=== PATIENT | female | born 1950 | race African-American/Black ===

== ENCOUNTER 2017-05-02 06:25 | Observation (INO) | payer MEDICARE, OTHER ==
--- NOTE | ~2017-05-02 | CO ---
Unit #: [id number] #: [id number] Patient: TANJA ISBELL [id number] [address] [place], [place] [address] [id number] I MR#: [id number] NAME: TANJA ISBELL. ROOM: [facility] Age: 67 Sex: F Admission Date: 05/02/2017 : 1950 Attending Physician: Eloisa Anguiano M.D. Primary Care Physician: Héctor Sheikh M.D. Consultation Date: 05/02/2017 CONSULTATION REPORT ADDENDUM PRIMARY CARE PHYSICIAN Héctor Sheikh M.D. REASON FOR CONSULTATION Upper GI bleed. HISTORY OF PRESENT ILLNESS The patient is a 67-year-old female from [facility]. She has a history of previous stroke and dementia and is able to volunteer any history. Apparently, she has some nausea and vomiting and found to have coffee-grounds emesis. She however had a normal hemoglobin on presentation of 14.3 and her BUN and creatinine ratio is mildly elevated at 29 and 1.5. A substantial upper GI bleed is unlikely. Suggest consider an upper endoscopy if the patient has had a drop in hemoglobin. Also suggest doing a modified swallow evaluation to assess the integrity of oropharyngeal function. We will also monitor hemoglobin and hematocrit. Dictated by... Gt Burrows/kori TD: 05/04/2017 01:18 JOB #: [id number] CONSULTATION REPORT Page 1 of 1 X Emery Booker MD X CONSULTATION REPORT
--- NOTE | ~2017-05-02 | EKG ---
PATIENT: TANJA ISBELL UNIT #: [id number] Ventricular Rate: 132 BPM Atrial Rate: 132 BPM P-R Interval: 132 ms QRS Duration: 84 ms Q-T Interval: 284 ms QTC Calculation(Bezet): 420 ms P [place]: 61 degrees Calculated R [place]: 49 degrees Calculated T [place]: -156 degrees Diagnosis Line: Sinus tachycardia with Premature atrial complexes Diagnosis Line: ST and T wave abnormality, consider inferior Diagnosis Line: ischemia Diagnosis Line: ST and T wave abnormality, consider anterolateral Diagnosis Line: ischemia Diagnosis Line: Abnormal ECG Diagnosis Line: No previous ECGs available Diagnosis Line: Confirmed by BROOK NORRIS MD ([id number]) on Diagnosis Line: 05/02/2017 11:15:50 AM INTERPRETING MD: ALLAN
--- NOTE | ~2017-05-02 | CO ---
Unit #: [id number] #: [id number] Patient: TANJA ISBELL [id number] [address] [address] [id number] I MR#: [id number] NAME: TANJA ISBELL. ROOM: 341 Age: 67 Sex: F Admission Date: 05/02/2017 : 1950 Attending Physician: Sonia Bergman M.D. Primary Care Physician: Héctor Sheikh M.D. Consultation Date: 05/02/2017 CONSULTATION REPORT DICTATED FOR Dr. Emery Booker. PRIMARY CARE PHYSICIAN . REASON FOR CONSULT Nausea, vomiting, and coffee-ground emesis. HISTORY OF PRESENT ILLNESS The patient is a 67-year-old female from [facility]. History is unobtainable from the patient secondary to history of CVA and questionable dementia. History is obtained from the chart and previous records. The patient was apparently brought in to the emergency room with acute onset of nausea, vomiting, and having coffee-grounds emesis. The patient has been asymptomatic since admission. Her hemoglobin is 14.3 on admission. PAST MEDICAL HISTORY Chronic kidney disease, toxic metabolic encephalopathy, GERD, hypertension, diabetes, congestive heart failure, CVA, and neurogenic bladder. ALLERGIES No known drug allergies. HOME MEDICATIONS Metoclopramide, pantoprazole, metoprolol, vitamin D, multivitamin, Plavix, isosorbide, citalopram, sodium bicarbonate, hydralazine, Depakote, simvastatin, Tylenol, Zofran, senna-S, and milk of magnesia. SOCIAL HISTORY The patient resides at [facility]. No history of alcohol or tobacco use. FAMILY HISTORY Unobtainable. REVIEW OF SYSTEMS Unobtainable secondary to the patient's cognitive impairment. PHYSICAL EXAMINATION GENERAL: The patient is awake, alert, oriented to self only, in no acute distress. Unit #: [id number] #: [id number] Patient: TANJA ISBELL VITAL SIGNS: Stable with temperature 99.7, blood pressure 170/92, heart rate 108, and respirations 15. HEENT: There is no pallor. No scleral icterus. NECK: No lymphadenopathy. The patient does have trace pedal edema. CARDIOVASCULAR: Regular rate and rhythm. LUNGS: Clear to auscultation bilaterally. ABDOMEN: Soft and nontender. Liver and spleen are not palpable. Bowel sounds are normal. DIAGNOSTIC STUDIES LABORATORY RESULTS: Complete metabolic panel notable for glucose 352, BUN 29, and creatinine 1.5. CBC notable for WBC 10.9, hemoglobin 14.3, and platelets 213. CLINICAL IMPRESSION AND PLAN The patient with nausea and vomiting with coffee-grounds emesis upper gastrointestinal bleed is unlikely. However, an upper GI endoscopy is indicated for definite diagnosis. Attempted to contact the patient's daughter, who is also her POA, is unsuccessful. The patient's sister was notified. We will plan for upper GI endoscopy tomorrow morning. The patient and plan of care discussed in detail with Dr. Booker. Further recommendations to follow. Thank you very much for asking us to see this patient. We appreciate the consult. Dictated by... JOSHUA Lopez/kori TD: 05/02/2017 15:57 JOB #: [id number] CONSULTATION REPORT Page 1 of 1 X X CONSULTATION REPORT
--- NOTE | ~2017-05-02 | DS ---
Unit #: [id number] #: [id number] Patient: TANJA ISBELL [id number] [address] [place], [place] [address] [id number] I MR#: [id number] NAME: TANJA ISBELL. ROOM: 341 Age: 67 Sex: F Admission Date: 05/02/2017 : 1950 Discharge Date: Attending Physician: Eloisa Anguiano M.D. Primary Care Physician: Héctor Sheikh M.D. DISCHARGE SUMMARY ADDENDUM ADDITIONAL PRINCIPAL DIAGNOSES 1. Severe oropharyngeal dysphagia. 2. Severe confluent ulcerative esophagitis. ADDITIONAL PROCEDURES EGD and PEG tube placement May 03, 2017, with findings of severe confluent ulcerative esophagitis. HOSPITAL COURSE Following dictation yesterday, patient was re-evaluated by speech therapy due to some reports of dysphagia. The patient was found to have significant oropharyngeal dysphagia and strict NPO was suggestive. After discussion with Dr. Booker regarding these findings, he discussed PEG tube placement with the patient and his daughter. The patient underwent PEG tube placement yesterday and today isn't complaining of any pain. She has been started on Glucerna 1.5 with a goal rate of 55 mL/hour. She is currently on 20 mL/hour and tolerating it without complication. We will change all of her medications to PEG tube and she can be discharged back to the nursing facility with monitoring of toleration of tube feeds. DISCHARGE CONDITION Stable. DISCHARGE STATUS Discharge to nursing facility. DISCHARGE MEDICATIONS 1. Sodium bicarbonate 650 mg per PEG t.i.d. 2. Tylenol 650 mg per PEG every four hours p.r.n. for pain or fever. 3. Depakote sprinkle, 125 mg per PEG daily. 4. Celexa 20 mg per PEG daily. 5. Zofran 4 mg per PEG every six hours p.r.n. for nausea and vomiting. 6. Metoprolol tartrate 25 mg per PEG b.i.d. 7. Milk of mag 30 mL per PEG daily p.r.n. for constipation. 8. Senokot 8.6 mg per PEG daily p.r.n. for constipation. 9. Refresh eyedrops, one drop to both eyes twice daily. 10. Zocor 5 mg per PEG at bedtime. 11. Hydralazine 25 mg per PEG t.i.d. 12. Humalog KwikPen U-100 14 units subcutaneously t.i.d. 13. Toujeo SoloStar 20 units subcutaneously at bedtime. 14. Reglan 5 mg per PEG four times daily. 15. Daily multivitamin per PEG. Unit #: [id number] #: [id number] Patient: TANJA ISBELL 16. Plavix 75 mg per PEG daily. 17. Pantoprazole 40 mg per PEG twice daily. 18. Imdur ER 60 mg per PEG daily. 19. Vitamin D3 2000 units per PEG daily. DISCHARGE INSTRUCTIONS The patient was instructed to remain NPO. However, she should be followed up by speech therapy at the rehab facility to further improve swallowing if possible. She should be maintained on Glucerna 1.5 with a goal rate of 55 mL/hour. PEG site should be cleaned and dressed with normal saline once daily. Patient should have abdominal binder to avoid pulling of tube. FOLLOWUP The patient will follow up with facility director upon return to the nursing facility. Dictated by... Eloisa Anguiano M.D. JERRELL/bailey TD: 05/04/2017 12:04 JOB #: [id number] DISCHARGE SUMMARY Page 1 of 1 X Eloisa Anguiano MD DISCHARGE SUMMARY
--- NOTE | ~2017-05-02 | A ---
[facility] Nutrition Therapy DATE: 05/04/17 Patient: TANJA ESPOSITO Physician: RACHEL Address: [facility] Room/Bed: [address] [place] [address], Zip: [place] [address] Admit Date: 05/02/17 Date of : [birth year] Height: Weight: 169 77 NUTRITIONAL ASSESSMENT: REASON: Consult re: tubefeed recommendations Dx: 67 y/o female admitted for GI bleed and n/v PMH: CKD, CVA, HTN, toxic metabolic encephalopathy, type 2 DM, CHF, CVA, neurogenic bladder Anthropometrics: ht: 5'2" (per family) wt: 169# (76.8 kg) BMI 30 Labs: Glu 280, BUN 30, Ca++ 10.4, GFR 54.5 Accuchecks 263 Meds: protonix, lopressor, novolog, zocor, levemir, reglan, zofran, milk of magnesia I/O & Bowel function: 160/502. Last BM 05/03 Skin Integrity: WNL Diet: NPO Estimated Nutrition Needs: 0790-7906 kcals (22-24 kcal/kg) 76.8-99 (1.0-1.3 g/kg) Fluids consistent with kcal needs or per MD Assessment: Chart reviewed, events noted. Ms. Esposito is a 67 y/o female admitted for a GI bleed. She is a resident of [facility]. Since admit, she has had a PEG tube placed d/t failed CURATOR OF PHOTOGRAPHY AND PRINTS evaluation and dysphagia. CURATOR OF PHOTOGRAPHY AND PRINTS recommended that the pt remain NPO and consider alternate nutrition. RD consulted to provide enteral nutrition recommendations. RD international controller visited pt at bedside, however, the pt was unable to provide nutritional history due to dementia. No family present to provide weight loss information. Please see recommendations. RD will continue to follow. Dx: Inadequate protein-energy intake r/t current clinical condition AEB NPO status, PEG tube placement, CURATOR OF PHOTOGRAPHY [employer]IN[employer] evaluation. Intervention: 1. Enteral nutrition Monitoring, Evaluation and Goals: 1. Enteral nutrition; once initiated, provide >80% estimated needs at goal volume x 24 hours [facility] Nutrition Therapy DATE: 05/04/17 Patient: TANJA ESPOSITO Physician: RACHEL Address: [facility] Room/Bed: [address] [place] [address], Zip: [place] [address] Admit Date: 05/02/17 Date of : [birth year] Height: Weight: 169 77 2. GI; promote regular GI function 3. Improve labs; glucose, BUN, GFR Recommendations: 1. Once mediclaly feasible, initiate enteral nutrition support with Glucerna 1.5 @ 20 mL/hr and advance 10 mL q 6 hours to goal rate of 50 mL/hr x 24 hours. This will provide 1800 kcal / 99 g protein / 912 mL free H20. -Add 200 mL Free water flushes q 6 hrs or per MD orders. 2. Monitor for signs of enteral nutrition intolerance. 3. Continue CURATOR OF PHOTOGRAPHY [employer]IN[employer] evaluation as appropriate. 4. Continue to monitor glucose and please obtain HgbA1C. RD will f/u per protocol as pt is at mild/moderate nutritional risk. Respectfully, OSORIO TATE, inclusion internship [employer] and [employer] [facility] cc: client file
--- NOTE | ~2017-05-02 | OR ---
Unit #: [id number] #: [id number] Patient: TANJA ISBELL [id number] [address] [address] [id number] I MR#: [id number] NAME: TANJA ISBELL. ROOM: [facility] Date of Procedure: 05/03/2017 Admission Date: 05/02/2017 Surgeon: Emery Booker M.D. : 1950 Attending Physician: Eloisa Anguiano M.D. Primary Care Physician: Héctor Sheikh M.D. OPERATIVE REPORT PRIMARY CARE PHYSICIAN Héctor Sheikh M.D. PREOPERATIVE DIAGNOSES High-grade oropharyngeal dysphagia with high risk for aspiration on a swallow evaluation. The patient has come for elective placement of a PEG tube for enteral feeding. PROCEDURES PERFORMED Upper gastrointestinal endoscopy and uncomplicated percutaneous endoscopic gastrostomy tube placement. POSTOPERATIVE DIAGNOSES 1. The patient has severe confluent ulcerative esophagitis involving the mid and distal esophagus. 2. Early stricture in distal esophagus, which was felt to be nonobstructing. 3. Rest of examination up to third part of duodenum was normal. A 20-Portuguese percutaneous endoscopic gastrostomy tube was placed without any problem. RECOMMENDATIONS 1. Please see the postoperative care of the patient in the chart regarding care of the PEG tube, feeding instructions, and discharge instructions. 2. The patient must stay on b.i.d. pantoprazole 40 mg via PEG tube b.i.d. on a long-term basis. She should have a repeat swallow evaluation in 8 to 10 weeks and if she passes that, then the PEG tube can be discontinued. The patient can be started on p.o. diet. SEDATION USED MAC. DESCRIPTION OF PROCEDURE Following detailed explanation of potential risks and complications of an upper endoscopy and a PEG placement namely perforation, bleeding, and complications related to sedation, the patient was brought to GI lab and laid in the supine position with the head of the bed elevated. Lubricated tip of the Olympus video upper endoscope was passed through the bite block into the proximal esophagus under direct vision. The entire esophageal mucosa was examined. The patient was noted to have severe confluent Unit #: [id number] #: [id number] Patient: TANJA ISBELL ulcerative esophagitis involving the mid and distal esophagus. In addition, there was early esophageal stricture in distal esophagus, which was felt to be nonobstructing. The scope was then advanced into the gastric cavity and the latter was insufflated. Mucosa of the fundus, body, and antrum examined and appeared unremarkable. Pylorus was intubated with visualization of the normal duodenal bulb and second and third part of the duodenum. Upon withdrawal and retroflexion, incisura, cardia, and greater curve examined and no additional findings noted. Using transillumination and finger indentation, a prospective PEG site was identified. The area was cleaned and draped with Betadine and 1% lidocaine infiltrative anesthesia was given. A small stab incision was made. Using Seldinger technique, guidewire was placed in the gastric cavity and the latter was grasped using a polypectomy snare and brought out through the oral cavity. A 20-Portuguese PEG tube was reloaded over the guidewire and brought out through the stab incision. Appropriate feeding attachments and securing device were applied. Relook endoscopy showed excellent position in the mushroom of the PEG tube. The scope was then withdrawn. The patient returned to the recovery area. She tolerated the procedure without any postprocedure complications. Dictated by... Gt Burrows/kori TD: 05/04/2017 23:18 JOB #: [id number] CC: Héctor Sheikh M.D. OPERATIVE REPORT Page 1 of 1 X Emery Booker MD PROCEDURE OPERATIVE NOTE
--- NOTE | ~2017-05-02 | DS ---
Unit #: [id number] #: [id number] Patient: TANJA ESPOSITO [id number] [address] [place], [place] [address] [id number] I MR#: [id number] NAME: TANJA ESPOSITO. ROOM: 341 Age: 67 Sex: F Admission Date: 05/02/2017 : 1950 Discharge Date: 05/03/2017 Attending Physician: Eloisa Anguiano M.D. Primary Care Physician: Héctor Sheikh M.D. DISCHARGE SUMMARY PRINCIPAL DIAGNOSES 1. Hematemesis x1 with stable hemoglobin of 14.3 upon discharge. 2. Hypertension, uncontrolled. 3. Dysphagia with pending swallow evaluation. 4. Questionable urinary tract infection, status post Rocephin x1. 5. Tachycardia. 6. Depression. 7. Chronic kidney disease. 8. Gastroesophageal reflux disease. 9. Diabetes mellitus type 2, insulin requiring. 10. Congestive heart failure, unknown type. 11. Prior history of stroke. 12. Neurogenic bladder. 13. Diabetic gastroparesis. 14. Hyperlipidemia. 15. Probable coronary artery disease. PROVIDER CONTRACTING CONSULTANT Dr. Booker, gastroenterology. PROCEDURE Chest x-ray on May 02, 2017, which was negative. CLINICAL HISTORY AND HOSPITAL COURSE Ms. Esposito is a 67-year-old -[place] female who presents to the emergency department with one episodes of hematemesis. Patient was subsequently transferred here for further evaluation. Upon presentation, hemoglobin was stable at 14.3 and today it is stable. She has had no further hematemesis. Dr. Booker was consulted and there are plans for EGD but after discussion today, he feels it is best to hold off and will just continue her on PPI therapy. Patient did have some tachycardia but is off her metoprolol. We will re-initiate and monitor heart rate. Her blood pressure has also been mildly high but again she has been off her blood pressure meds and will re-initiate those. There is some concern about underlying urinary tract infection. Urinalysis is revealing 5-10 WBCs. I am going to give her Rocephin x1 and will follow up urine culture after discharge. She has also had a mild leukocytosis but no evidence of fever. Will discharge back to senior care today. DISCHARGE CONDITION Stable. Unit #: [id number] #: [id number] Patient: TANJA ESPOSITO DISCHARGE STATUS Return to nursing facility. DISCHARGE MEDICATIONS 1. Sodium bicarbonate 650 mg p.o. t.i.d. 2. Tylenol 650 mg p.o. q.4 hours p.r.n. for pain. 3. Depakote 125 mg daily. 4. Celexa 10 mg daily. 5. Zofran 4 mg p.o. q.6 hours p.r.n. for nausea and vomiting. 6. Metoprolol tartrate 25 mg daily. 7. Milk of Magnesia 30 mg p.o. daily p.r.n. for constipation. 8. Senokot 8.6 mg daily p.r.n. for constipation. 9. Ketotifen eye drops one drop to both eyes twice daily. 10. Zocor 5 mg at bedtime. 11. Hydralazine 25 mg t.i.d. 12. Humalog U 100 at 14 units t.i.d. with meals. 13. Toujeo 20 units subcutaneously at bedtime. 14. Reglan 5 mg four times daily. 15. Daily multivitamin. 16. Plavix 75 mg daily. 17. Pantoprazole 40 mg daily. 18. Isosorbide mononitrate ER 60 mg daily. 19. Vitamin D3 at 2000 units p.o. daily. DISCHARGE INSTRUCTIONS 1. Patient was instructed to follow a constant carb heart healthy diet. She will continue Accu-Cheks a.c. and at bedtime. 2. She can increase her activity as tolerated, but I believe she is essentially chronically immobile. FOLLOWUP Patient will follow up with facility director upon return. Can be re-evaluated by speech therapy if she has any sort of underlying dysphagia. Dictated by... Eloisa Anguiano M.D. JERRELL/jefferson TD: 05/03/2017 11:28 JOB #: [id number] DISCHARGE SUMMARY Page 1 of 1 X Eloisa Anguiano MD X DISCHARGE SUMMARY
--- NOTE | ~2017-05-02 | CR72 ---
[facility] A Service of [facility] & [facility] RADIOLOGY TEXT RESULTS PATIENT: TANJA ISBELL LOCATION: [facility] 341- : [birth year] UNIT #: [id number] AGE: [address]: Eloisa Anguiano MD SEX: F ORDER DR: [id number] [facility] [address]. [place], [place] [address] [id number] MR#: [id number] Acc #: [id number] NAME: TANJA ISBELL. : 1950 SEX: F STUDY DATE/TIME: 05/02/2017 8:59 UNIT: [address] ROOM: [facility] STUDY DESCRIPTION: CR Chest Single View Portable Attending Physician: Sonia Bergman M.D. Ordering Physician: Reece Pollard M.D. Primary Care Physician: Héctor Sheikh M.D. MEDICAL IMAGING REPORT This report is preliminary unless electronic signature is present EXAM Portable chest INDICTION: Vomiting, cough and shortness of breath today. COMPARISON: 10/18/05 FINDINGS Slightly low volume inspiration. No acute infiltrate. Prior sternotomy and CABG. Atherosclerotic calcification in the aorta. IMPRESSION No active disease Dictated by... Manpreet Hernandez M.D. THIS IS AN ELECTRONICALLY VERIFIED REPORT Manpreet Hernandez M.D. at 05/03/2017 7:50 AM JIAN/sanjiv TD: 05/02/2017 13:31 JOB #: [id number] MEDICAL IMAGING REPORT Page 1 of 1 COPY
--- NOTE | ~2017-05-02 | HP ---
Unit #: [id number] #: [id number] Patient: TANJA ISBELL [id number] [address] [address] [id number] MR#: [id number] NAME: TANJA ISBELL. ROOM: 341 Age: 67 Sex: F Admission Date: 05/02/2017 : 1950 Attending Physician: Linus Bergman M.D. Primary Care Physician: Héctor Sheikh M.D. HISTORY AND PHYSICAL CHIEF COMPLAINT Coffee-ground emesis. HISTORY OF PRESENT ILLNESS The patient is a 67-year-old female with a history of chronic kidney disease, toxic metabolic encephalopathy, GERD, hypertension, type 2 diabetes, CHF, CVA, and neurogenic bladder, brought to the emergency room with a large amount of brown coffee-ground emesis. The patient is unable to provide any history with a history of CVA and toxic metabolic encephalopathy, and the history is obtained by speaking to the ER physicians. The patient had a fecal occult blood test in the emergency room that was negative. Patient is being admitted for the above reasons. No history of fevers or chills. PAST MEDICAL HISTORY 1. Toxic metabolic encephalopathy. 2. Chronic kidney disease. 3. Type 2 diabetes mellitus. 4. Cerebrovascular accident. 5. Hypertension. 6. Gastroesophageal reflux disease. 7. Chronic diastolic heart failure. PAST SURGICAL HISTORY None. ALLERGIES No known drug allergies. SOCIAL HISTORY Resident of [facility]. No history of smoking, alcohol, or any illicit drug abuse. FAMILY HISTORY Reviewed and none. REVIEW OF SYSTEMS Unable to obtain. HOME MEDICATIONS 1. Metoclopramide. 2. Pantoprazole. 3. Metoprolol. 4. Vitamin D3. Unit #: [id number] #: [id number] Patient: TANJA ISBELL 5. Multivitamins with iron. 6. Plavix. 7. Isosorbide. 8. Citalopram. 9. Sodium bicarbonate. 10. Hydralazine. 11. Depakote. 12. Zocor. 13. Tylenol. 14. Ondansetron. 15. Senna. 16. Milk of Magnesia. 17. Humalog. 18. Toujeo SoloStar. PHYSICAL EXAMINATION GENERAL: Patient is lying in bed not in acute distress. VITAL SIGNS: Temperature 99.5, pulse 133, respiratory rate 15, blood pressure 122/73, and saturating 98% on room air. HEENT: Head atraumatic, normocephalic. Pupils equal, round, and reactive to light and accommodation. Extraocular movements are intact. NECK: Supple. LUNGS: Decreased air entry at the bases. HEART: Regular rate and rhythm. ABDOMEN: Soft. Positive bowel sounds. EXTREMITIES: No cyanosis, no clubbing. NEUROLOGIC: Unable to assess because of toxic metabolic encephalopathy and the CVA. DIAGNOSTIC STUDIES LABORATORY: WBC 10.9, hemoglobin 14.3, hematocrit 44.7, and platelets 213,000. Sodium 140, potassium 4.5, chloride 99, bicarb 25, glucose 352, BUN 29, creatinine 1.5, AST 19, ALT 14, albumin 4, and glucose 269. IMAGING: Chest x-ray shows no acute disease. ASSESSMENT 1. Hematemesis. 2. Toxic metabolic encephalopathy. 3. Diabetes mellitus. PLAN Admit the patient to observation. Patient will be seen by GI. Patient will have an upper endoscopy. Patient was seen by swallow therapy who recommended n.p.o. except for ice chips for now and good oral care. Closely monitor hemoglobin and hematocrit and transfuse if hemoglobin is down to 10. Further recommendations will follow. Dictated by Gt Burgos/kylah TD: 05/02/2017 15:49 JOB #: [id number] Unit #: [id number] #: [id number] Patient: ISBELLTANJA Allyssa HISTORY AND PHYSICAL Page 1 of 1 X LINUS BERGMAN MD X HISTORY AND PHYSICAL
[2017-05-02 07:30] LABS: BASOPHIL% 0.4 % (0-2.5); EOSINOPHIL% 0.1 % (0.0-7.0); HEMATOCRIT 44.7 % (35.0-45.0); HEMOGLOBIN 14.3 gm/dL (12.0-16.0); LYMPHOCYTE# 0.8 X10e3 (1.0-3.5); LYMPHOCYTE% 7.5 % (17.0-45.0); MEAN CELL VOLUME 89.6 FL (83-96); MEAN CORPUSCULAR HEMOGLOBIN 28.6 PG (28-34); MEAN CORPUSCULAR HGB CONC 31.9 g/dL (30-36); MONOCYTE# 0.3 X10e3 (0-1.0); MONOCYTE% 2.4 % (3.0-12.0); NEUTROPHIL# 9.8 X10e3 (1.5-7.1); NEUTROPHIL% 89.6 % (40-75); PLATELET COUNT 213 X10e3 (140-420); RED BLOOD COUNT 4.99 X10e (3.90-5.30); RED CELL DISTRIBUTION WIDTH 13.9 % (11.0-15.5); WHITE BLOOD COUNT 10.9 X10e3 (4.0-10.5)
[2017-05-02 07:38] LABS: DIFF IND NO
[2017-05-02 08:17] LABS: ALKALINE PHOSPHATASE 89 U/L (32-92); ALT (SGPT) 14 U/L (10-40); AST (SGOT) 19 U/L (10-42); BILIRUBIN, DIRECT 0.3 mg/dL (0.0-0.2); BILIRUBIN,INDIRECT 1.8 mg/dL (0.0-0.9); BILIRUBIN,TOTAL 2.1 mg/dL (0.2-2.0); BLOOD UREA NITROGEN 29 mg/dL (9-23); BUN/CREATININE RATIO 19.33; CALCIUM SERUM 10.9 mg/dL (8.4-10.2); CARBON DIOXIDE 25 mmol/L (22-31); CHLORIDE 99 mmol/L (100-111); CREATININE SERUM 1.5 mg/dL (0.6-1.4); GLOM FILT RATE Estimated 41.7 mL/min (>60); GLUCOSE FASTING 352 mg/dL (70-110); POTASSIUM 4.5 mmol/L (3.5-5.1); PROTEIN TOTAL SERUM 7.9 g/dL (6.0-8.3); SODIUM 140 mmol/L (135-145)
[2017-05-02 08:18] LABS: DEPAKENE (VALPROIC ACID) <10 ug/mL (50-125)
[2017-05-02] MEDS ORDERED: METOCLOPRAMIDE H5 MG PO (09:34)
[2017-05-02] MEDS ORDERED: PANTOPRAZOLE SO40 MG PO (09:35)
[2017-05-02] MEDS ORDERED: METOPROLOL TAR25 MG PO (09:35)
[2017-05-02] MEDS ORDERED: VITAMIN D32000 UNI1 PO (09:36)
[2017-05-02] MEDS ORDERED: TAB-A-VITE WIT1 EACH PO (09:36)
[2017-05-02] MEDS ORDERED: CLOPIDOGREL75 MG PO (09:37)
[2017-05-02] MEDS ORDERED: ISOSORBIDE MONO60 M1 PO (09:38)
[2017-05-02] MEDS ORDERED: SODIUM BICARBO650 MG PO (09:39)
[2017-05-02] MEDS ORDERED: CELEXA10 MG PO (09:39)
[2017-05-02] MEDS ORDERED: REFRESH5 ML OU (09:40)
[2017-05-02] MEDS ORDERED: HYDRALAZINE HCL25 MG PO (09:40)
[2017-05-02] MEDS ORDERED: ZOCOR5 MG PO (09:41)
[2017-05-02] MEDS ORDERED: DEPAKOTE SPRIN125 MG PO (09:41)
[2017-05-02] MEDS ORDERED: ONDANSETRON HCL4 M1 PO (09:42)
[2017-05-02] MEDS ORDERED: SENNA8.6 M1 PO (09:42)
[2017-05-02] MEDS ORDERED: PAIN RELIEVER325 M1 PO (09:42)
[2017-05-02] MEDS ORDERED: MILK OF MAGNESIA PO (09:43)
[2017-05-02] MEDS ORDERED: HUMALOG KW100 UNIT/1 SUBQ (09:43)
[2017-05-02] MEDS ORDERED: TOUJEO SOL300 UNIT/1 SUBQ (09:44)
[2017-05-02 15:39] LABS: URINE SOURCE CLEAN CATCH
[2017-05-02 16:00] LABS: URINE APPEARANCE CLEAR; URINE BILIRUBIN NEG (NEG); URINE BLOOD 1+ (NEG); URINE COLOR YELLOW; URINE GLUCOSE >1000 MG/DL (NEG); URINE KETONE 2+ (NEG); URINE LEUKOCYTE ESTERASE NEG (NEG); URINE NITRATE NEG (NEG); URINE PROTEIN 2+ (NEG); URINE SPECIFIC GRAVITY 1.033 (1.003-1.035)
[2017-05-02 16:03] LABS: CULTURE INDICATED? YES; URINE BACTERIA AUWI 1+ (NEGATIVE); URINE SQUAMOUS EPITHELIAL CELL OCC /[HPF]
[2017-05-03 09:23] LABS: BASOPHIL# 0.1 X10e3 (0-0.3); BASOPHIL% 0.4 % (0-2.5); EOSINOPHIL# 0.1 X10e3 (0-0.7); EOSINOPHIL% 0.6 % (0.0-7.0); HEMATOCRIT 44.7 % (35.0-45.0); HEMOGLOBIN 14.3 gm/dL (12.0-16.0); LYMPHOCYTE# 1.7 X10e3 (1.0-3.5); LYMPHOCYTE% 10.9 % (17.0-45.0); MEAN CELL VOLUME 89.8 FL (83-96); MEAN CORPUSCULAR HEMOGLOBIN 28.7 PG (28-34); MEAN CORPUSCULAR HGB CONC 31.9 g/dL (30-36); MEAN PLATELET VOLUME 10.4 FL (6.5-11.5); MONOCYTE# 0.7 X10e3 (0-1.0); MONOCYTE% 4.2 % (3.0-12.0); NEUTROPHIL# 12.9 X10e3 (1.5-7.1); NEUTROPHIL% 83.9 % (40-75); PLATELET COUNT 175 X10e3 (140-420); RED BLOOD COUNT 4.97 X10e (3.90-5.30); RED CELL DISTRIBUTION WIDTH 14.2 % (11.0-15.5); WHITE BLOOD COUNT 15.3 X10e3 (4.0-10.5)
[2017-05-03 09:25] LABS: DIFF IND YES
[2017-05-03 10:25] LABS: PLATELET ESTIMATE NORMAL (NORMAL); RBC NORMAL YES
[2017-05-03 18:08] LABS: CALCIUM SERUM 10.4 mg/dL (8.4-10.2); CREATININE SERUM 1.2 mg/dL (0.6-1.4); GLOM FILT RATE Estimated 54.5 mL/min (>60); POTASSIUM 4.3 mmol/L (3.5-5.1)
== END 2017-05-04 17:28 ==
LOC: CED 06:25 → CEDOF 08:25 → C3A PCU 08:25 → CED 08:37 → C3A PCU 08:37 → CEDOF 08:37 → C3A PCU 10:08
PROVIDERS: Emergency Medicine; Internal Medicine; Internal Medicine Gastroenterology
DX: K22.10 Ulcer of esophagus without bleeding (principal); K22.2 Esophageal obstruction; R13.12 Dysphagia, oropharyngeal phase; K92.0 Hematemesis; R00.0 Tachycardia, unspecified; E11.22 Type 2 diabetes mellitus with diabetic chronic kidney disease; I13.0 Hypertensive heart and chronic kidney disease with heart failure and stage 1 through stage 4 chronic kidney disease, or unspecified chronic kidney disease; N18.9 Chronic kidney disease, unspecified; I50.9 Heart failure, unspecified; Z79.4 Long term (current) use of insulin; E11.43 Type 2 diabetes mellitus with diabetic autonomic (poly)neuropathy; K31.84 Gastroparesis; F32.9 Major depressive disorder, single episode, unspecified; N31.9 Neuromuscular dysfunction of bladder, unspecified; E78.5 Hyperlipidemia, unspecified; G92 Toxic encephalopathy; Z86.73 Personal history of transient ischemic attack (TIA), and cerebral infarction without residual deficits
CPT/HCPCS: 36415; 71010; 80048; 80076; 80164; 81003; 82947; 85025; 86850; 86900; 86901; 87086; 92526; 92610; 93005; 96360; 96375; 96376; 99285; C9113; G0378; G8996-GN; G8997-GN; G8998-GN; J0360; J0696; J1815; J3490